=== PATIENT | male | born 1945 | race Two or more races ===

== ENCOUNTER → 2018-04-26 | Outpatient (CLI) | payer OTHER | END | disposition home or self-care (01) | LOC: MRI 10:55 | DX: M54.2 Cervicalgia (principal) | CPT/HCPCS: 72141 ==

== ENCOUNTER 2018-05-07 12:31 | Outpatient (CLI) | payer OTHER | END 2018-05-07 12:35 | disposition home or self-care (01) | LOC: NUCLEAR 12:31 | DX: M81.0 Age-related osteoporosis without current pathological fracture (principal) ==

== ENCOUNTER → 2018-05-09 15:01 | Outpatient (CLI) | payer OTHER | END | disposition home or self-care (01) | LOC: LAB 15:01 | DX: E55.9 Vitamin D deficiency, unspecified (principal); M85.9 Disorder of bone density and structure, unspecified; E21.3 Hyperparathyroidism, unspecified; M81.8 Other osteoporosis without current pathological fracture; E56.1 Deficiency of vitamin K; E88.89 Other specified metabolic disorders; E83.42 Hypomagnesemia ==

== ENCOUNTER 2018-09-21 07:20 | Outpatient (CLI) | payer OTHER ==
[2018-09-21] MEDS ORDERED: GLUMETZA500 MG (11:53)
[2018-09-21] MEDS ORDERED: NORVASC2.5 M1 (11:54)
[2018-09-21] MEDS ORDERED: COZAAR100 MG (11:54)
[2018-09-21] MEDS ORDERED: VITAMIN D34000 UNIT (11:55)
[2018-09-21] MEDS ORDERED: CRESTOR5 MG (11:56)
== END 2018-09-21 07:25 | disposition home or self-care (01) ==
LOC: LAB 07:20
DX: D64.89 Other specified anemias (principal); E88.89 Other specified metabolic disorders; B95.62 Methicillin resistant Staphylococcus aureus infection as the cause of diseases classified elsewhere; D68.8 Other specified coagulation defects; N39.0 Urinary tract infection, site not specified; E83.42 Hypomagnesemia; E03.8 Other specified hypothyroidism; E11.9 Type 2 diabetes mellitus without complications; Z76.89 Persons encountering health services in other specified circumstances; I49.8 Other specified cardiac arrhythmias; Z01.810 Encounter for preprocedural cardiovascular examination; Z01.812 Encounter for preprocedural laboratory examination

== ENCOUNTER 2018-10-01 05:09 | Day surgery (SDC) | payer OTHER ==
[~2018-10-01 05:09] MED LIST: COZAAR100 MG; CRESTOR5 MG; GLUMETZA500 MG; NORVASC2.5 M1; VITAMIN D34000 UNIT
== END 2018-10-01 12:05 | disposition home or self-care (01) ==
LOC: CIR.AMB 05:09
DX: M23.221 Derangement of posterior horn of medial meniscus due to old tear or injury, right knee (principal); M12.261 Villonodular synovitis (pigmented), right knee; M17.11 Unilateral primary osteoarthritis, right knee

== ENCOUNTER → 2020-01-28 | Emergency (ER) | payer OTHER ==
[~2020-01-28] VITALS: Ht 162.6 cm; Wt 70.8 kg
[~2020-01-28] MED LIST changes: +AMLODIPINE-OLM1 EAC2 PO; +CALTRATE 600 +1 EACH; +OMEGA-31000 MG
== END | disposition home or self-care (01) ==
LOC: ER 09:14
DX: N39.0 Urinary tract infection, site not specified (principal)

== ENCOUNTER 2021-01-12 12:19 | Outpatient (CLI) | payer OTHER | END 2021-01-12 12:24 | disposition home or self-care (01) | LOC: RAD 12:19 → LAB 12:19 | PROVIDERS: ATTEND Urology | DX: C61 Malignant neoplasm of prostate (principal); N30.00 Acute cystitis without hematuria; N20.0 Calculus of kidney ==

== ENCOUNTER 2021-01-26 11:47 | Outpatient (CLI) | payer OTHER | END 2021-01-26 12:02 | disposition home or self-care (01) | LOC: RAD 11:47 | PROVIDERS: ATTEND Urology | DX: I11.9 Hypertensive heart disease without heart failure (principal); C61 Malignant neoplasm of prostate; F52.21 Male erectile disorder; N39.45 Continuous leakage ==

== ENCOUNTER 2021-02-04 14:09 | Inpatient (IN) | payer OTHER ==
[~2021-02-04] VITALS: Ht 165.1 cm; Wt 69.4 kg
[2021-02-04] MEDS ORDERED: ROSUVASTATIN CA20 MG PO (14:31)
[2021-02-04] MEDS ORDERED: LOSARTAN POTAS100 MG PO (14:31)
[2021-02-04] MEDS ORDERED: METFORMIN HCL500 M4 PO (14:31)
[2021-02-04] MEDS ORDERED: NORVASC2.5 MG PO (14:31)
--- NOTE | 2021-02-04 14:33 | NUR ---
SE RECIBE PACIENTE ALERTA, ORIENTADO X 3 ESFERAS LLEGA EN AMBULANCIA, ACOMPANADA DE FAMILIAR REFIERE TENER DOLOR EN AREA DE ESPALDA BAJA QUE SE IRRADIA A ABDOMEN. PTE . SE UBICA EN AMNADO # 10 CON BARRANDAS ELEVADAS.
--- NOTE | 2021-02-04 15:16 | NUR ---
EVALUA PTE. SE EDUCA A PTE SOBRE [place] MEDICO. PTE REFIERE COMPRENDER. SE REALIZAN MUESTRAS DE LABORATORIO BAJO MEDIDAS ASEPTICAS. SE ADMINISTRAN MEDICAMENTOS TYRELL ORDEN MEDICA. PENDIENTE CT. SE MANTIENE EN OBSERVACION POR CAMBIOS.
== END 2021-02-06 12:59 | disposition home or self-care (01) | DRG 669 ==
LOC: ER 14:09 → MEDJ 20:45 → SEC-K 20:45 → MEDJ 02-05 00:43
PROVIDERS: Urology; ADMIT Internal Medicine; ATTEND Internal Medicine
PROC: 0T9B80Z Drainage of Bladder with Drainage Device, Via Natural or Artificial Opening Endoscopic (ICD-10-PCS; 2021-02-05)
PROC: 0TC68ZZ Extirpation of Matter from Right Ureter, Via Natural or Artificial Opening Endoscopic (ICD-10-PCS; principal; 2021-02-05 12:00)
DX: N13.8 Other obstructive and reflux uropathy (principal); N17.8 Other acute kidney failure; N10 Acute pyelonephritis; N20.2 Calculus of kidney with calculus of ureter; Z85.46 Personal history of malignant neoplasm of prostate; E11.9 Type 2 diabetes mellitus without complications; I10 Essential (primary) hypertension

== ENCOUNTER → 2021-02-12 07:02 | Outpatient (CLI) | payer OTHER ==
[~2021-02-12 07:02] MED LIST changes: +LOSARTAN POTAS100 MG PO; +METFORMIN HCL500 M4 PO; +NORVASC2.5 MG PO; +ROSUVASTATIN CA20 MG PO
== END | disposition home or self-care (01) ==
LOC: RAD 07:02
PROVIDERS: ATTEND Urology
DX: N20.1 Calculus of ureter (principal)

== ENCOUNTER 2021-04-05 09:35 | Outpatient (CLI) | payer OTHER | END 2021-04-05 15:00 | disposition home or self-care (01) | LOC: LAB 09:35 | PROVIDERS: ATTEND Urology | DX: N20.1 Calculus of ureter (principal); N30.00 Acute cystitis without hematuria ==

== ENCOUNTER → 2021-04-12 06:19 | Outpatient (CLI) | payer OTHER | END | disposition home or self-care (01) | LOC: LAB 06:19 | PROVIDERS: ATTEND Urology | DX: N20.0 Calculus of kidney (principal) ==

== ENCOUNTER 2021-04-26 13:21 | Outpatient (CLI) | payer OTHER | END 2021-04-26 13:30 | disposition home or self-care (01) | LOC: LAB 13:21 | PROVIDERS: ATTEND Urology | DX: I10 Essential (primary) hypertension (principal); E78.49 Other hyperlipidemia; N39.0 Urinary tract infection, site not specified; E55.9 Vitamin D deficiency, unspecified; D64.89 Other specified anemias; E11.9 Type 2 diabetes mellitus without complications; E03.8 Other specified hypothyroidism; R97.20 Elevated prostate specific antigen [PSA] ==